=== PATIENT | male | born 2000 | race Caucasian/White ===

== ENCOUNTER → 2021-08-24 00:58 | Outpatient (CLI) | payer OTHER, SELFPAY ==
[2021-08-24 21:02] LABS: SARS-CoV-2 RNA PCR Negative
== END ==
PROVIDERS: PCP Internal Medicine; Visit Provider Internal Medicine
DX: R68.89 Other general symptoms and signs (principal); Z20.822 Contact with and (suspected) exposure to COVID-19
CPT/HCPCS: C9803; U0003; U0005

== ENCOUNTER 2022-11-21 01:59 | Emergency (ER) | payer OTHER, SELFPAY ==
--- NOTE | ~2022-11-21 | US_ITS ---
Testicular ultrasound with doppler. Indication: Right testicular pain. Technique: Real-time sonography the scrotum was performed. Color flow Doppler and Doppler spectral an alysis were performed. Findings: The testes are homogeneous in echotexture bilaterally. There is no evidence of an intrates ticular mass. The right testis measures 4.7 x 2.5 x 2.7 cm and the left 4.4 x 2.7 x 3.0 cm. There is color-flow seen to both testes. Arterial and venous spectral waveforms are seen in both testes. There is no sonographic evidence of torsion. The head of the epididymis is visualized bilaterally and is within normal limits. Small bilateral hydroceles noted. Impression: Small bilateral hydroceles, otherwise unremarkable exam. Reviewed, dictated and finalized at location . Impression: Small bilateral hydroceles, otherwise unremarkable exam.
[2022-11-21 02:02] VITALS: BP 184/94; PULSE 87; RESP 16; TEMP 36.6; O2SAT 100
[2022-11-21 03:43] LABS: Appearance Urine Clear (Clear); Bilirubin Urine Negative (Negative); Blood Urine Negative (Negative); Color Urine Yellow (Yellow); Glucose Urine UA Negative (Negative); Ketones Urine Negative (Negative); Leukocyte Esterase Ur Negative LEU/UL (Negative); Nitrate Urine Negative (Negative); Protein Urine Negative (Negative); Specific Grav Ur 1.019 (1.001-1.035)
[2022-11-21 03:55] LABS: Add Urine Microscopic? NO
[2022-11-21 04:15] VITALS: BP 130/86; PULSE 72; RESP 17; O2SAT 100
--- NOTE | 2022-11-21 05:42 | ED.GENADULT ---
HPI - General Adult General Chief complaint: Urogenital-Male <Demar Carroll MD - Last Filed: 11/23/22 22:17> Stated complaint: right testicle pain <Demar Carroll MD - Last Filed: 11/23/22 22:17> Time Seen by Provider: 11/21/22 02:53 <Demar Carroll MD - Last Filed: 11/23/22 22:17> History of Present Illness HPI narrative: This is a 22-year-old male coming to the ED for testicle pain. The pain started at 11:00 p.m. last night while he was watching TV. He describes it is a sharp pain whenever he moves that becomes a dull pain if he sits completely still. The patient denies trauma, swelling, skin changes. He is not sexually active. He denies fever chills nausea vomiting diarrhea. He says he has had some pain when he urinates since this has occurred. <Demar Carroll MD - Last Filed: 11/23/22 22:17> Related Data Allergies/adverse reactions: Allergies Allergy/AdvReac Type Severity Reaction Status Date / Time No Known Allergies Allergy Verified 11/21/22 01:59 <Demar Carroll MD - Last Filed: 11/23/22 22:17> [facility] Past Medical History Medical History: Medical History Healthy male adult <Demar Carroll MD - Last Filed: 11/23/22 22:17> Exam Narrative: APPEARANCE: No apparent distress. Head: atraumatic. EYES: EOMI, NOSE: Atraumatic NECK: Trachea midline RESPIRATORY: No increased rate of breathing CARDIOVASCULAR: RRR, ABDOMINAL: Non-distended MUSCULOSKELETAl: No obvious deformities NEURO: Alert. Moving 4/4 extremities SKIN:: Warm, dry. Normal color PSYCHIATRIC: Normal affect General exam: The right testicle is tender to palpation diffusely but worse on the superior aspect and posterior aspect. Normal lie. Unable to elicit a cremasteric reflex. <Demar Carroll MD - Last Filed: 11/23/22 22:17> Course INSURANCE AGENCY MANAGER/PA Physician Supervision Care was turned over to myself at shift change awaiting urology evaluation patient currently laying in bed seen by myself agrees initial H&P Patient's over read of ultrasound this morning from our radiologist shows no signs of torsion. Dr. Brewer came down to see the patient for urology in the emergency department. Evaluate the patient reviewed the ultrasound. At this time states no signs of torsion he believes the patient may be discharged home with follow-up as an outpatient Discussed with patient results of workup and diagnosis. Discussed need for follow-up with primary care, proper use of medication, and reasons to return to the emergency department. Patient understands and agrees to current treatment plan <Cortes Rosado DO - Last Filed: 11/21/22 07:41> Vital Signs Vital signs: Vital Signs Temperature 97.9 F 11/21/22 02:02 Pulse Rate 87 11/21/22 02:02 Respiratory Rate 16 11/21/22 02:02 Blood Pressure 184/94 H 11/21/22 02:02 Pulse Oximetry 100 11/21/22 02:02 Oxygen Delivery Room Air 11/21/22 02:02 Temperature 97.9 F 11/21/22 02:02 Pulse Rate 70 11/21/22 07:40 Respiratory Rate 18 11/21/22 07:40 Blood Pressure 136/87 11/21/22 07:40 Pulse Oximetry 100 11/21/22 07:40 Oxygen Delivery Room Air 11/21/22 02:02 <Demar Carroll MD - Last Filed: 11/23/22 22:17> Vital Signs Temperature 97.9 F 11/21/22 02:02 Pulse Rate 87 11/21/22 02:02 Respiratory Rate 16 11/21/22 02:02 Blood Pressure 184/94 H 11/21/22 02:02 Pulse Oximetry 100 11/21/22 02:02 Oxygen Delivery Room Air 11/21/22 02:02 Temperature 97.9 F 11/21/22 02:02 Pulse Rate 70 11/21/22 07:40 Respiratory Rate 18 11/21/22 07:40 Blood Pressure 136/87 11/21/22 07:40 Pulse Oximetry 100 11/21/22 07:40 Oxygen Delivery Room Air 11/21/22 02:02 <Cortes Rosado DO - Last Filed: 11/21/22 07:41> Medical Decision Making MDM Narrative Medical decision making narrative: -Presentation: -year-old male presenting wit
[2022-11-21] MEDS: HYDROcodone/acetaminophen (*CRX) 5-325 MG TABLET 1 TAB PO (06:01)
[2022-11-21 06:02] VITALS: BP 137/93; PULSE 64; RESP 16; O2SAT 100
--- NOTE | 2022-11-21 07:32 | WPDURCON ---
Assessment and Plan Assessment and plan (1) Testicular pain, right: Code(s): N50.811 - Right testicular pain Status: Acute Assessment and Plan: Ultrasound documents flow in both testes. Epididymis bilaterally normal as well. No trauma. No sexual contact. Etiology of his testicular pain is unknown. Perhaps torsion of the appendix testis? he does seem tender near the epididymis. He does not have increased vascularity of the epididymis. He is currently largely asymptomatic and feeling well. He will be discharged home. I told him to return to the ER promptly if he has recurrent episodes or similar such symptoms. He is in agreement with the plan. Urology Consult Note HPI Date Seen: 11/21/22 Requesting Physician: Emergency Room [facility] Primary Care Provider: Delon De JesusMD Consult Narrative Narrative: Kt Guaman is a 22 year old male. He he noted right testicular pain at 11:30 p.m. on Monday night. There was no dysuria. There was no vomiting. There is no recent sexual contacts. He had no previous episodes of similar discomfort. There has been no trauma. he got into a warm shower and this relieved the pain somewhat. He was worried about testicular torsion and wisely presented to the emergency room for evaluation. Discomfort has improved. Ultrasound shows normal bilateral testicles with documented blood flow. He is dressed feeling better and ready for discharge home Review of Systems Review of Systems: All systems reviewed & are unremarkable except as noted in HPI and below PMFSH Past Medical History Medical History Healthy male adult Comments No significant past medical history. He is currently a student and in the . Meds Home Medications and Allergies Allergies Allergy/AdvReac Type Severity Reaction Status Date / Time No Known Allergies Allergy Verified 11/21/22 01:59 Vital Signs Vital Signs - 24 hr 11/21/22 02:02 11/21/22 04:15 11/21/22 06:02 Temperature 97.9 F Pulse Rate 87 72 64 Respiratory Rate 16 17 16 Blood Pressure 184/94 H 130/86 137/93 H Pulse Oximetry 100 100 100 Oxygen Delivery Room Air Exam Const: General: cooperative, healthy appearing, comfortable, no acute distress, well developed, alert and Physically active; No anxious Nutritional Appearance: average body habitus Orientation/consciousness: patient oriented x3 Limitations: no limitations HENMT: Head: normal to inspection Eyes: General: appearance normal, both eyes and all related structures Neck: Neck: normal visual inspection and full ROM Resp: Effort & Inspection: normal respiratory effort, able to speak in complete sentences, no grunting and not labored GI: Inspection: normal to inspection, non-distended and no incisions GI Palp: No abdominal tenderness and No Guarding due to palpation present (GI) : General: Yes no CVA tenderness Male General Exam: Yes normal external exam, No edema and No erythema Penis: Yes normal penis Scrotum: scrotum normal Testes: Testes normal, testicular lie normal, epididymides normal, epididymal tenderness, no masses, normal testicular lie and No testicular atrophy Other: He has normal phallus. Normal scrotum. Right testis is tender posteriorly near the epididymis. There is no abnormal lie. I did not feel a twisted cord. Back/Spine/Pelvis: Back: no CVA tenderness Skin: General skin exam: normal color and no rashes or lesions noted Neuro: General: oriented to person, oriented to place, oriented to time and patient oriented x3 Extrem: General: normal to inspection and full ROM Psych: Appearance: grossly normal Results Labs Labs: Urine 11/21/22 Range/Units 03:35 Urine Color Yellow (Yellow) Urine Appearance Clear (Clear) Urine pH 7.0 (5.0-9.0) Ur Specific [place] 1.019 (1.001-1.035) Urine Protein Negative (Negative) mg/dL U
[2022-11-21 07:40] VITALS: BP 136/87; PULSE 70; RESP 18; O2SAT 100
== END 2022-11-21 07:56 | disposition home or self-care (01) ==
PROVIDERS: Emergency Medicine; Emergency Provider Emergency Medicine; PCP Internal Medicine
DX: N50.811 Right testicular pain (principal)
CPT/HCPCS: 76870; 81003; 93976; 99284; A9270

== ENCOUNTER 2025-07-17 16:54 | Emergency (ER) | payer OTHER, SELFPAY ==
--- NOTE | 2025-07-17 16:55 | ED_ITS ---
HPI - Extremity Injury (Upper) General Chief Complaint: Extremity Injury, Upper Stated Complaint: R HAND INJURY Time Seen by Provider: 07/17/25 16:55 Source: patient Mode of arrival: ambulatory Limitations: no limitations History of Present Illness HPI narrative: Kt is a 25 year old male patient presenting to the clinic today with c/o right hand 3rd/4th knuckle pain. He reports he was playing dodgeball and he threw the ball and then suddenly had sharp pain between to the 3rd/4th knuckle and pain was radiating up his hand/arm. No injury. Related Data Home Medications ?Medication ?Instructions ?Recorded ?Confirmed ?Last Taken ?Type No Home Medications 07/17/25 07/17/25 U nknown History Allergies Allergy/AdvReac Type Severity Reaction Status Date / Time No Known Allergies Allergy Verified 07/17/25 17:06 Review of Systems Review of Systems: Pertinent positives per HPI. Patient denies any fever, chills, rash, headache, visual changes, dizziness, cough, runny nose, sore throat, shortness of breath, chest pain, palpitations, nausea, vomiting, diarrhea, constipation, abdominal pain, or any urinary issues. [facility] Past Medical History Medical History Healthy male adult Comments At the time of my signature, I reviewed and agree with the nursing past medical, surgical, social, and family history. There is no relevant family history pertinent to the patient complaint. Exam Narrative: General: Well-developed, well nourished, in no apparent distress Head: Normocephalic, atraumatic. Cardio: Regular rate and rhythm, s1 and s2 normal, no murmur appreciated. Resp: Clear to auscultation bilaterally, no rhonchi, rales, wheezing or rubs. Musculoskeletal: No deformity, mildly tender to palpation in between the 3rd and 4th knuckle of the right hand, some radiation of pain into the hand/wrist with movement, grossly normal range of motion, muscle strength strong and equal, peripheral pulse strong, no edema, no cyanosis, normal gait and station Course Course Level of Care: Express Care Visit Vital Signs Vital signs: Vital Signs Temperature 36.3 C L 07/17/25 17:06 Pulse Rate 69 07/17/25 17:06 Respiratory Rate 16 07/17/25 17:06 Blood Pressure 118/80 07/17/25 17:06 Pulse Oximetry 100 07/17/25 17:06 Temperature 36.3 C L 07/17/25 17:06 Pulse Rate 69 07/17/25 17:06 Respiratory Rate 16 07/17/25 17:06 Blood Pressure 118/80 07/17/25 17:06 Pulse Oximetry 100 07/17/25 17:06 MDM MDM Narrative Medical decision making narrative: At the time of visit patient is resting comfortably on the exam table. Patient appears to be nontoxic. C/o right hand 3rd/4th knuckle pain. He reports he was playing dodgeball and he threw the ball and then suddenly had sharp pain between to the 3rd/4th knuckle and pain was radiating up his hand/arm. No injury. On exam patient has very mild tenderness to palpation in between the 3rd and 4th knuckle of the right hand-states pain radiates when he moves his finger down into his some hand/wrist. Has good range of motion, strong hand grasp, is able to make an okay and give a thumbs-up. Plan: I suspect patient has tendon strain/tendinitis. Recommend ibuprofen. May apply ice to the affected area to help alleviate some pain. No x-ray needed at this time as he does not really have any bony tenderness. Supportive measures were discussed with the patient and they voiced understanding discharge instructions and agrees to treatment plan. Return precautions reviewed Differential Diagnosis Differential Diagnosis: Differential diagnostic considerations for upper extremity injury include sprain/strain of wrist, fracture of wrist, finger sprain, dislocation of finger, fracture of hand, dislocation of shoulder, fracture of humerus, fracture of clavicle, laceration, tendon injury, carpal tunnel syndrome. Discharge Plan Discharge Clinical Impression: Finger tendinitis Patient Disposition: Home Condition: Stable Instructions: Antibiotic Form, Tendinitis (ED) Additional Instructions: I suspect you have tendon strain versus tendinitis. Rest, ice, elevate Tylenol/motrin for pain as discussed. Follow up with your PCP if symptoms persist more than 1 week. Patient Language: Kiswahili Prescriptions: No Action No Home Medications Follow-up/Referrals: Neal,Delon Sherman MD [Primary Care Provider] Stand Alone Forms: Work/School Release IP Time of Disposition: 17:12 Quality NIHSS Nursing Documentation ED NIHSS nursing documentation: reviewed/agree
[2025-07-17 17:06] VITALS: BP 118/80; PULSE 69; RESP 16; TEMP 36.3; O2SAT 100
== END 2025-07-17 17:15 | disposition home or self-care (01) ==
PROVIDERS: Emergency Provider Nurse Practitioner Family; PCP Internal Medicine
DX: M77.8 Other enthesopathies, not elsewhere classified (principal)
CPT/HCPCS: 99212; G0463